=== PATIENT | male | born 1945 | race Caucasian/White ===

== ENCOUNTER 2020-08-28 15:06 | Emergency (ER) | payer MEDICARE, OTHER ==
[~2020-08-28 15:06] MED LIST: ASPIRIN EC81 MG PO; ASPIRIN325 MG PO; FISH OIL 1,0001 EAC1 PO; GLUCOPHAGE1000 MG PO; IMDUR ER TAB 3030 MG PO; ISOSORBIDE MONO20 MG PO; JANUVIA50 MG PO; LISINOPRIL20 MG PO; LOPRESSOR50 MG PO; MULTI-DAY VITA1 EACH PO; NITROGLYCERIN0.4 MG PO; SOTALOL80 MG PO; TOPROL XL 50 MG50 MG PO; TOPROL XL50 MG PO; ZOCOR20 MG PO
[2020-08-28 16:22] LABS: RED BLOOD COUNT 4.61 M/UL (4.20-5.50); WHITE BLOOD COUNT 8.9 K/UL (4.5-11.0)
[2020-08-28 16:53] LABS: BUN/CREATININE RATIO 17 (0-10)
[2020-08-28] MEDS ORDERED: TESSALON PERLE100 MG PO (18:12)
[2020-08-28] MEDS ORDERED: CEFUROXIME500 MG PO (18:12)
== END 2020-08-28 18:48 | disposition home or self-care (01) ==
LOC: ER1 15:06
PROVIDERS: Preventive Medicine Occupational Medicine
DX: J44.0 Chronic obstructive pulmonary disease with (acute) lower respiratory infection (principal); J20.9 Acute bronchitis, unspecified; I10 Essential (primary) hypertension; E11.9 Type 2 diabetes mellitus without complications; I25.10 Atherosclerotic heart disease of native coronary artery without angina pectoris
CPT/HCPCS: 70450; 71045; 80053; 82550; 82553; 83874; 83880; 84484; 85025; 86140; 94664; 96374; 99285; J0696

== ENCOUNTER → 2021-08-05 | Outpatient (CLI) | payer MEDICARE, OTHER ==
[~2021-08-05] MED LIST changes: +CEFUROXIME500 MG PO; +TESSALON PERLE100 MG PO
== END ==
LOC: KOH-I 09:54
DX: M25.562 Pain in left knee (principal); M17.12 Unilateral primary osteoarthritis, left knee; I70.202 Unspecified atherosclerosis of native arteries of extremities, left leg
CPT/HCPCS: 73562

== ENCOUNTER → 2021-09-22 | Outpatient (CLI) | payer MEDICARE, OTHER | LOC: EMI 16:04 | DX: S83.242A Other tear of medial meniscus, current injury, left knee, initial encounter (principal); M94.28 Chondromalacia, other site | CPT/HCPCS: 73721 ==